=== PATIENT | female | born 1990 | race Two or more races ===

== ENCOUNTER 2025-05-17 12:51 | Emergency (ER) | payer MEDICAID ==
[~2025-05-17] VITALS: Ht 162.6 cm; Wt 64.0 kg
[2025-05-17 14:03] LABS: PLATELET COUNT (AUTO) 306 K/uL (150-450); RED BLOOD CELL COUNT(AUTO) 4.23 MIL/uL (4.0-5.2); RED CELL DISTRIBUTION WIDTH 14.5 % (11.5-15.0); WHITE BLOOD COUNT (AUTO) 5.8 K/uL (4.3-11.0)
[2025-05-17 14:18] LABS: ASPARTATE AMINOTRANSFERASE 9.0 U/L (15-37); CALCIUM, SERUM 9.2 mg/dL (8.5-10.1); CREATININE 0.8 mg/dL (0.6-1.3); SODIUM SERUM 135.0 mmol/L (136-145); TOTAL PROTEIN, SERUM 7.9 g/dL (6.4-8.2); UREA NITROGEN, BLOOD 12.0 mg/dL (7-18)
[2025-05-17 14:52] LABS: APPEARANCE,URINE CLEAR (CLEAR); BLOOD, URINE 1+ Ery/uL (NEGATIVE); LEUKOCYTE ESTERASE ,URINE NEGATIVE (NEGATIVE); NITRITE, URINE NEGATIVE (NEGATIVE); UGLUCOSE NEGATIVE (NEGATIVE)
[2025-05-17 15:00] LABS: PREGNANCY TEST URINE QUAL POSITIVE (NEGATIVE)
[2025-05-17 15:11] LABS: ADD URINE CULTURE NO
[2025-05-17] MEDS ORDERED: ONDA4TAB5 PO (16:04)
[2025-05-17] MEDS: IV NS 0.9% 1,000 ML BAG IV ONE (16:24)
[2025-05-17] MEDS: ACETAMINOPHEN ES 500 MG TABLET PO ONE (16:24)
[2025-05-17 16:25] VITALS: BP 125/87; TEMP 98.5; O2SAT 99
== END 2025-05-17 16:26 | disposition home or self-care (01) ==
LOC: ER 12:59
DX: O26.91 Pregnancy related conditions, unspecified, first trimester (principal); Z93.1 Gastrostomy status; R20.0 Anesthesia of skin; Z79.899 Other long term (current) drug therapy; Z3A.01 Less than 8 weeks gestation of pregnancy
CPT/HCPCS: 36415; 76805-TC; 80048-TC; 80076-TC; 81001; 83690-TC; 83735-TC; 84702-TC; 84703-TC; 85025-TC; 87086-TC